=== PATIENT | male | born 1970 | race Two or more races ===

== ENCOUNTER 2022-01-17 01:33 | Emergency (ER) | payer OTHER | END 2022-01-17 05:52 | disposition home or self-care (01) | LOC: ER1 01:33 | DX: H10.9 Unspecified conjunctivitis (principal); R51.9 Headache, unspecified; Y04.2XXA Assault by strike against or bumped into by another person, initial encounter | CPT/HCPCS: 70486; 99283 ==

== ENCOUNTER 2022-05-29 15:37 | Emergency (ER) | payer OTHER ==
[2022-05-29 17:09] LABS: HEMOGLOBIN 13.1 gm/dl (14.0-17.5); RED BLOOD COUNT 4.81 M/UL (4.20-5.50); WHITE BLOOD COUNT 5.5 K/UL (4.5-11.0)
[2022-05-29 17:22] LABS: BUN/CREATININE RATIO 13 (0-10)
[2022-05-29] MEDS ORDERED: TORADOL 10 MG T10 MG PO (20:25)
== END 2022-05-29 20:54 | disposition home or self-care (01) ==
LOC: ER1 15:37
PROVIDERS: Physician Assistant
DX: R10.9 Unspecified abdominal pain (principal); I10 Essential (primary) hypertension
CPT/HCPCS: 80053; 81001; 83690; 85025; 85652; 87086; 96374; 99284; J1885; Q9967